=== PATIENT | female | born 1975 | race Caucasian/White ===

== ENCOUNTER → 2023-10-14 | Outpatient (CLI) | payer BC ==
[~2023-10-14] MED LIST: GADOTERATE MEGLUMINE 7.5 MMOL/15 ML VIAL IV ONE
== END | disposition home or self-care (01) ==
LOC: MRI 16:16
PROVIDERS: ATTEND Physician Assistant
DX: H93.12 Tinnitus, left ear (principal); J32.0 Chronic maxillary sinusitis; N83.291 Other ovarian cyst, right side
CPT/HCPCS: 70553; A9575

== ENCOUNTER → 2023-10-22 | Outpatient (CLI) | payer BC | END | disposition home or self-care (01) | LOC: MRI 14:35 | PROVIDERS: ATTEND Physician Assistant | DX: Q82.2 Congenital cutaneous mastocytosis (principal) | CPT/HCPCS: 70544 ==